=== PATIENT | male | born 1985 | race Hispanic/Latino ===

== ENCOUNTER 2019-09-06 17:04 | Emergency (ER) | payer OTHER ==
[~2019-09-06] VITALS: Ht 175.3 cm; Wt 97.5 kg
[~2019-09-06 17:04] MED LIST: ACULAR LS5 ML OPTH; ERYTHROMYCIN3.5 GM OD
--- NOTE | 2019-09-06 20:27 | EKG ---
[facility] [address] [facility] [place] [address] Signed Normal sinus rhythm Minimal voltage criteria for LVH, may be normal variant Borderline ECG No previous ECGs available Confirmed by YE LOZANO MD ([id number] on 09/06/2019 8:27:34 PM Electronically Signed By: YE LOZANO MD 09/06/192026 PATIENT NAME: SRINIVASA CARRILLO Electrocardiogram DATE OF : 83 PHYSICIAN: YE LOZANO MD REPORT #: [id number] REPORT IS CONFIDENTIAL AND NOT TO BE RELEASED WITHOUT AUTHORIZATION
== END 2019-09-06 19:02 | disposition home or self-care (01) ==
LOC: ED 17:04
DX: R07.89 Other chest pain (principal)
CPT/HCPCS: 71046; 80053; 83735; 84484; 85025; 93005; 93010; 99285-25